=== PATIENT | male | born 2000 | race Caucasian/White ===

== ENCOUNTER 2022-01-02 20:19 | Emergency (ER) | payer OTHER ==
[2022-01-02 20:27] VITALS: BP 131/79; PULSE 85; RESP 16; TEMP 97.9
[2022-01-02] MEDS ORDERED: DEXAMETHASONE SOD PHOSPHATE 10 MG/ML 1 ML VIAL IM STA (21:30)
--- NOTE | 2022-01-03 00:34 | ED ---
ENT HPI - General Chief complaint: ENT Stated complaint: Strep Time Seen by Provider: 01/02/22 21:16 Source: patient Mode of arrival: ambulatory Limitations: no limitations - History of Present Illness Initial comments: Patient is a 21-year-old otherwise healthy male who presents to the emergency department for the chief complaint of throat pain. Patient states he was diagnosed with strep throat last week at [facility] and was given amoxicillin. States they did not perform swab testing of his throat. Patient states he has been taking amoxicillin for 2 days with no improvement of symptoms. Patient feels that his throat was very swollen. Denies fever, chills, shortness of breath, chest pain, abdominal pain, nausea, vomiting. - Related Data Previous Rx's Medication Instructions Recorded methylPREDNISolone Dose Pack 4 mg PO DIRECTED #21 tab 01/03/22 [Medrol Dose Pack] Allergies Allergy/AdvReac Type Severity Reaction Status Date / Time No Known Allergies Allergy Verified 01/02/22 20:27 Review of Systems ROS Statement: Those systems with pertinent positive or pertinent negative responses have been documented in the HPI. ROS Other: All systems not noted in ROS Statement are negative. Past Medical History Past Medical History: No Reported History History of Any Multi-Drug Resistant Organisms: None Reported Past Surgical History: No Surgical Hx Reported Past Psychological History: No Psychological Hx Reported Smoking Status: Vaper Past Alcohol Use History: Occasional Past Drug Use History: None Reported General Exam Limitations: no limitations General appearance: alert, in no apparent distress Head exam: Present: atraumatic, normocephalic, normal inspection Eye exam: Present: normal appearance, PERRL, EOMI. Absent: scleral icterus, conjunctival injection, periorbital swelling ENT exam: Present: normal oropharynx (Significantly swollen tonsils with copious exudate), mucous membranes moist Respiratory exam: Present: normal lung sounds bilaterally. Absent: respiratory distress, wheezes, rales, rhonchi, stridor Cardiovascular Exam: Present: regular rate, normal rhythm, normal heart sounds. Absent: systolic murmur, diastolic murmur, rubs, gallop, clicks GI/Abdominal exam: Present: soft, normal bowel sounds. Absent: distended, tenderness, guarding, rebound, rigid Neurological exam: Present: alert, oriented X3, CN II-XII intact Psychiatric exam: Present: normal affect, normal mood Skin exam: Present: warm, dry, intact, normal color. Absent: rash Course Vital Signs 01/02/22 20:25 Temperature 97.9 F Pulse Rate 85 Respiratory 16 Rate Blood Pressure 131/79 O2 Sat by Pulse 100 Oximetry Medical Decision Making - Medical Decision Making This is a 21-year-old male who presents with history of diagnosis with consistent throat pain after 2 full days of amoxicillin. Thorough history and examination were performed. Patient is well-appearing. Afebrile. There is significant swelling of the tonsils with copious exudate. Heterophile antibody is positive. Strep is not detected. Patient given Solu- Medrol in the emergency department for throat swelling. He'll be discharged with Medrol Dosepak. We discussed symptoms and treatment in detail. Patient to follow-up with his primary care provider. Dr. Bernabe is my attending. - Lab Data Lab Results 01/02/22 01/02/22 Range/Units 23:24 23:51 Heterophile Antibody Positive (Negative) Group A Strep Rapid Negative (Negative) Disposition Clinical Impression: Mononucleosis Disposition: HOME SELF-CARE Condition: Good Instructions (If sedation given, give patient instructions): Mononucleosis (ED) Additional Instructions: Take steroid as directed. Stop taking antibiotic as mono is a virus therefore antibiotics will not help your symptoms. Avoid contact sports or high risk injuries that could result an abdominal trauma due to the risk of splenic rupture. Return to the emergency department if you experience new, concerning, or worsening symptoms. Prescriptions: methylPREDNISolone Dose Pack [Medrol Dose Pack] 4 mg PO DIRECTED #21 tab Is patient prescribed a controlled substance at d/c from ED?: No Referrals: None,Stated [Primary Care Provider] - 1-2 days Time of Disposition: 00:33
== END 2022-01-03 00:44 | disposition home or self-care (01) ==
LOC: EC 20:19
DX: B27.90 Infectious mononucleosis, unspecified without complication (principal); F17.290 Nicotine dependence, other tobacco product, uncomplicated
CPT/HCPCS: 36415; 86308; 87081; 87430; 99283; 96372; J1100